=== PATIENT | male | born 1965 | race Caucasian/White ===

== ENCOUNTER 2017-08-11 13:13 | Day surgery (SDC) | payer BC ==
[2017-08-11] MEDS ORDERED: DIAZEPAM 5 MG TAB PO ONE (13:21)
[2017-08-11] MEDS ORDERED: ASPIRIN EC 325 MG TAB PO ONE ×2 (13:21→13:49)
[2017-08-11] MEDS ORDERED: diphenhydrAMINE 25 MG CAP PO ONE ×2 (13:21→13:48)
[2017-08-11] MEDS ORDERED: NS 1,000 ML IV ONE (13:21)
[2017-08-11] MEDS ORDERED: FAMOTIDINE 20 MG TAB PO ONE (13:21)
--- NOTE | 2017-08-11 13:36 | CPEKG ---
Heart Rate: 85 RR Interval: 706 P-R Interval: 156 QRSD Interval: 82 QT Interval: 368 QTC Interval: 438 P [place]: 57 QRS [place]: 0 T Wave [place]: 2 EKG Severity - BORDERLINE ECG - EKG Impression: SINUS RHYTHM EKG Impression: TALL R WAVE IN V2, CONSIDER RVH OR PMI EKG Impression: BORDERLINE T WAVE ABNORMALITIES Electronically Signed By: Brennon Salazar 13-Aug-2017 13:22:18
[2017-08-11] MEDS ORDERED: FAMOTIDINE 20 MG TAB ONE (13:48)
[2017-08-11] MEDS ORDERED: DIAZEPAM 5 MG TAB ONE (13:49)
[2017-08-11 13:53] LABS: % IMMATURE GRANULYOCYTES 0.2 % (0.0-1.1); ABSOLUTE IMMATURE GRANULOCYTES 0.01 10^3/uL (0.00-0.10); ADD DIFF? NO; ADD MORPH? NO; ADD SCAN? NO; ATYPICAL LYMPHOCYTE FLAG 0 (0-99); FRAGMENT RBC FLAG 0 (0-99); HEMATOCRIT 39.5 % (40.0-51.0); HEMOGLOBIN 14.3 g/dL (13.7-17.5); LEFT SHIFT FLG 0 (0-99); LIPEMIA HEMOLYSIS FLAG 90 (0-99); MEAN CELL HEMOGLOBIN 31.6 pg (27.9-34.1); MEAN CELL HEMOGLOBIN CONCENTR. 36.2 g/dL (32.4-36.7); MEAN CELL VOLUME 87.4 fL (81.5-99.8); MEAN PLATELET VOLUME 9.9 fL (8.7-11.7); PLATELET CLUMPS FLAG 0 (0-99); PLATELET COUNT 197 10^3/uL (150-400); RED BLOOD CELL COUNT 4.52 10^6/uL (4.40-6.38); RED CELL DISTRIBUTION WIDTH 11.6 % (11.5-15.2)
[2017-08-11 14:05] LABS: INR 0.98 (0.83-1.16); PROTIME(PATIENT) 13.2 SEC (12.0-15.0)
[2017-08-11] MEDS ORDERED: LIDOCAINE 1% 300 MG/30 ML SDV ONE (14:30)
[2017-08-11] MEDS ORDERED: IOPAMIDOL (ISOVUE-370) 150 ML BTL IV ONE (14:31)
[2017-08-11] MEDS ORDERED: VERAPAMIL 5 MG/2 ML VIAL ONE (14:31)
[2017-08-11] MEDS ORDERED: fentaNYL 100 MCG/2 ML INJ ONE (14:31)
[2017-08-11] MEDS ORDERED: MIDAZOLAM 2 MG/2 ML VIAL ONE (14:31)
[2017-08-11] MEDS ORDERED: HEPARIN 10,000 UNIT/10 ML MDV ONE (14:31)
[2017-08-11 14:36] LABS: ANION GAP 14 mEq/L (8-16); CALCIUM 9.5 mg/dL (8.5-10.4); CARBON DIOXIDE 26 mEq/l (22-31); CHLORIDE 98 mEq/L (97-110); CHOLESTEROL 166 mg/dL (140-220); CHOLESTEROL/HDL RATIO 3.07 RATIO (1.00-4.97); GLOMERULAR FILTRATION RATE > 60; GLUCOSE 101 mg/dL (70-100); HIGH DENSITY LIPOPROTEIN 54 mg/dL (40-65); LDL/HDL RATIO 1.67 RATIO (1.00-3.64); LOW DENSITY LIPOPROTEIN 90 mg/dL (80-100); NON-HIGH DENSITY LIPOPROTEIN 112 mg/dL (90-129); SODIUM 138 mEq/L (134-144); TRIGLYCERIDE 110 mg/dL (40-150); VERY LOW DENSITY LIPOPROTEINS 22 mg/dL (8-25)
--- NOTE | 2017-08-11 16:36 | PDDXCAT ---
Diagnostic Cath Note - . Date: 08/11/17 Supervisor Hot Dip Plating: Gilberto Indication: CCC Class III and IV angina on medical treatment - Procedure Access: right wrist Procedure: left heart catheterization - Materials Left Heart Cath size: 5F Left Heart Cath materials: standard multipack (JL4, JR4, pigtail) - Findings-Left Heart Catheterization LM: LM is 8mm in size and bifurcates into an LAD and Circumflex system. LAD: LAD is 3mm in size without evidence of flow limiting obstruction. There is evidence of calcification consistent with underlying atherosclerosis. CARLIE III flow was present. LCX: 3mm in size with no flow limiting obstruction. CARL[place] III flow RCA: 4MM in size and is dominant. It gives rise to the PDA and a small PLV branch. CARLIE III flow is present. EDP: LVEDP is 11mmHg. LVEF: 65% with no segmental wall motion abnormality. No evidence of significant MR. Wall motion: No wall motion abnormalities. Complications: NONE. Estimated blood loss: <50ml Closure method: TR Band Assessment: CAD is present without flow limiting obstruction. No other significant abnormalities noted. Plan: Continue medical management and lifestyle modification to reduce the risk of atherosclerosis progression and cardiovascular events. These would include daily Aspirin, statin based cholesterol reduction and good control of blood pressure with an MAHESH inhibitor or ARB based regimen.
[2017-08-11] MEDS ORDERED: OXYCODONE/APAP 5/325 TAB PO PRN (17:30)
[2017-08-11] MEDS ORDERED: HYDROCODONE/APAP 5/325 TAB PO PRN (17:30)
[2017-08-11] MEDS ORDERED: NITROGLYCERIN 0.4 MG BTL SL PRN (17:30)
[2017-08-11] MEDS ORDERED: ONDANSETRON 4 MG/2 ML VIAL IVP PRN (17:30)
[2017-08-11] MEDS ORDERED: ATROPINE SULFATE 1 MG/10 ML SYR IVP PRN (17:30)
== END 2017-08-11 19:53 | disposition home or self-care (01) ==
LOC: FCATH 13:13 → EDBD 15:45 → FCATH 19:53
PROVIDERS: ATTEND Internal Medicine Cardiovascular Disease
PROC: B2151ZZ Fluoroscopy of Left Heart using Low Osmolar Contrast (ICD-10-PCS; principal; 2017-08-11)
PROC: B2111ZZ Fluoroscopy of Multiple Coronary Arteries using Low Osmolar Contrast (ICD-10-PCS; principal; 2017-08-11)
PROC: 4A023N7 Measurement of Cardiac Sampling and Pressure, Left Heart, Percutaneous Approach (ICD-10-PCS; principal; 2017-08-11)
DX: R07.9 Chest pain, unspecified (principal); I10 Essential (primary) hypertension; I25.10 Atherosclerotic heart disease of native coronary artery without angina pectoris; E78.00 Pure hypercholesterolemia, unspecified
CPT/HCPCS: J1644; J2250; J3010; Q9967